=== PATIENT | female | born 1990 | race Caucasian/White ===

== ENCOUNTER 2020-02-20 05:53 | Inpatient (IN) | payer OTHER, SELFPAY ==
[2020-02-20] VITALS (70 sets, daily range): BP systolic 101–156; BP diastolic 57–109; PULSE 62–123; RESP 18; TEMP 36.3–37.2; O2SAT 98–100; BMI 28.3
[2020-02-20 06:34] LABS: Basophils Percent Auto 0.3 % (0.2-1.2); Eosinophils Percent Auto 0.2 % (0-4.4); Hematocrit 35.6 % (37.0-47.0); Immature Granulocyte Absolute 0.03 K/mm3 (0.00-0.031); Immature Granulocyte Percent A 0.3 % (0-0.5); Lymphocytes Absolute Auto 2.48 K/mm3 (0.9-3.2); Lymphocytes Percent Auto 25.9 % (18.3-44.2); Mean Corpuscular HGB Conc 33.7 g/dl (32-36); Mean Corpuscular Hemoglobin 28.5 pg (26-34); Mean Corpuscular Volume 84.6 fl (80-100); Mean Platelet Volume 11.1 fl (7.4-10.4); Monocytes Absolute Auto 0.6 K/mm3 (0.1-0.6); Monocytes Percent Auto 5.8 % (2.6-8.5); Neutrophils Absolute Auto 6.5 K/mm3 (1.3-6.7); Neutrophils Percent Auto 67.5 % (45.5-73.1); Platelet Count Result 296 k/mm3 (150-375); Red Blood Count 4.21 M/mm3 (4.2-5.4); Red Cell Distribution Width 13.3 % (11.5-14.5); White Blood Count 9.6 K/mm3 (4.5-10.0)
[2020-02-20] MEDS: OXYTOCIN 30 UNITS/NS 500 ML 30 UNITS/500 ML BAG 6 UNITS IV CONT ×2 (06:35→17:14)
[2020-02-20] MEDS: LACTATED RINGERS 1,000 ML 125 ML IV CONT ×2 (06:37→08:54)
--- NOTE | 2020-02-20 07:08 | LDADM ---
This patient, Jackie Mays, was admitted to Labor/Delivery/Recovery 106 on 02/20/20 at 05:53. Plans for labor, pain management and were discussed with patient. Patient/family oriented to hospital policies and general routines including ID bracelet, bed and alarms, visiting hours, pain management, procedures, bathroom and other care routines, personal items, smoking policy, room service/diet and guest tray routines, security routines, and visiting hours. Patient/Family are encouraged to report perceived risks to care and to ask questions if they do not understand what they are told or what they should do. See OBIX for further documentation.
[2020-02-20 07:40] LABS: Rapid Plasma Reagin Non-Reactive (NonReactive)
--- NOTE | 2020-02-20 17:20 | P.PCNOB_ITS ---
OB - Delivery Note Procedure Route of delivery: Laceration description: Perineal - 2nd Degree Delivery repair: chromic Specimen: No Estimated blood loss (mL): 500 Anesthesia type: Epidural Disposition: floor Narrative: Patient prepped draped usual for procedure. Maternal expulsive efforts delivered vertex was suction the nasal and. Rest of baby was delivered without difficulty cord was clamped and cut. Second-degree laceration was noted and approximated using 2 0 chromic in the vaginal area deep tissue was approximated as well. Subcuticular layer of 2 0 chromic to approximate the perineum. Placenta then delivered without difficulty uterus was well contracted there was no significant bleeding. This point procedure was considered terminated with good post operative condition of both mother and baby [place] Baby Weeks of gestation at delivery: 39 Infant gender: Female Weight (pounds): 8 Weight (ounces): 8 presentation: vertex Placenta delivery description: Spontaneous score one minute: 9 score five minutes: 9
--- NOTE | 2020-02-20 17:20 | WPDHPUPDATE1 ---
History and Physical Update Update Date/Time: 02/20/20 17:20 History and Physical has been reviewed, including an updated exam of the patient. There are NO changes in the patient's condition. Risks, benefits, and alternatives have been discussed and questions answered. Patient agrees to proceed with procedure.
--- NOTE | 2020-02-20 17:20 | WPDOBADMIT ---
Obstetrics - Admit Note Admission Note: record reviewed. No pertinent additions to the history and/or any subsequent changes in the physical findings that are not consistent with the expected course of the were found. Additions to the history and/or subsequent changes in the physical findings follow. None.
--- NOTE | 2020-02-20 20:13 | PC.NURSE ---
Addendum entered by Xi Bridges RN 02/21/20 01:19: Patient transferred to post room #283 via wheelchair. Support person, Suraj present. Oriented to unit, room, information board, rooming in, admission packet and security measures. Patient verbalizes understanding. Original Note: Patient transferred to post room # via ( ). Support person present. Oriented to unit, room, information board, rooming in, admission packet and security measures. Patient verbalizes understanding.
[2020-02-20] MEDS: WITCH HAZEL 40 PADS 1 PAD TOPICAL (20:15)
[2020-02-20] MEDS: BENZOCAINE 20% AER SPR (*SP) 56 GM CAN 1 SPRAY TOPICAL (20:15)
[2020-02-20] MEDS: IBUPROFEN 600 MG TABLET PO (22:48)
[2020-02-21] MEDS: IBUPROFEN 600 MG TABLET PO ×3 (04:54→19:34)
[2020-02-21 04:56] LABS: Hematocrit 30.5 % (37.0-47.0)
[2020-02-21] MEDS: MULTIVIT/MIN/PREN/FOL AC/IRON TABLET 1 TAB PO (07:04)
[2020-02-21] MEDS: ACETAMINOPHEN 325 MG TABLET 650 MG PO ×2 (07:04→12:21)
[2020-02-21 07:30] VITALS: BP 107/67; PULSE 80; RESP 18; TEMP 36.8; O2SAT 100
--- NOTE | 2020-02-21 10:59 | PM.OBDSVD ---
OB - DS: Summary OB Procedures : None OB Procedures Intrapartum: Spontaneous Vag Delivery OB Procedures: : None Time Spent with Patient Time attestation: Total time spent providing and/or coordinating discharge services: DS: Data Data Completed and Pending Labs on day of discharge: Labs from last 24 hours 02/21/20 04:39 Hgb 10.0 L Hct 30.5 L Discharge Plan Discharge Discharging Clinician: Trevor Barajas Patient Disposition: Home, Self-Care Activity: as tolerated Diet: as tolerated Patient Instructions: Antibiotic Form Stand Alone Forms: General Discharge Information Follow-up/Referrals: Trevor Barajas MD [Physician] - 3 Weeks Discharge Medications: New hydrocodone-acetaminophen 5-325 mg Tablet 1 tab PO Q3H PRN (Reason: Moderate Pain (4-6)) Qty: 30 RF: 0 ibuprofen 600 mg Tablet 600 mg PO Q6H PRN (Reason: Cramping) Qty: 30 RF: 0 Continued 28-800 mg-mcg Tablet 1 tablet PO AC RF: 0 albuterol sulfate 90 mcg/actuation Hfa Aerosol Inhaler 1 inh INHALATION QID PRN (Reason: Shortness Of Breath) RF: 0 Date of admission: 02/20/20 05:53 Primary Care Provider: UNKNOWN,DOCTOR Admitting Provider: Trevor Barajas Attending physician on admission: Trevor Barajas
--- NOTE | 2020-02-21 11:12 | WPDANLDPN2 ---
Anes-Prog Note L&D Date/Time: 02/21/20 11:12 Comfortable throughout: labor and delivery Neuraxial method: epidural Epidural/Spinal procedure site: clean & non-tender Neuro status: Neuro function grossly intact. Cardiovascular status: normal Respiratory status: normal Airway patency: baseline Mental status: baseline Post-Op hydration status: normal Vital Signs: Last Vital Signs Temp 36.8 C 02/21/20 07:30 Pulse 80 02/21/20 07:30 Resp 18 02/21/20 07:30 BP 107/67 02/21/20 07:30 Pulse Ox 100 02/21/20 07:30 I/O: Intake & Output 02/20/20 02/21/20 02/21/20 23:59 07:59 15:59 Intake Total 500 Balance 500 Patient feedback: Patient satisfied with anesthetic care.
[2020-02-21] MEDS: TETANUS,DIPHTHERIA,AC PERTUSSIS ADULT (0.5 ML) BOOSTRIX IM (15:13)
[2020-02-21 19:00] VITALS: BP 136/86; PULSE 97; RESP 16; TEMP 36.7
[2020-02-22] MEDS: IBUPROFEN 600 MG TABLET PO ×2 (05:50→13:09)
[2020-02-22] MEDS: DOCUSATE SODIUM 100 MG CAPSULE PO (07:34)
[2020-02-22] MEDS: MULTIVIT/MIN/PREN/FOL AC/IRON TABLET 1 TAB PO (07:34)
[2020-02-22 09:37] VITALS: BP 99/61; PULSE 86; RESP 14; TEMP 36.7; O2SAT 99
[2020-02-22] MEDS: WITCH HAZEL 40 PADS 1 PAD TOPICAL (13:08)
[2020-02-22] MEDS: BENZOCAINE 20% AER SPR (*SP) 56 GM CAN 1 SPRAY TOPICAL (13:08)
[2020-02-22] MEDS: LANOLIN (LANSINOH) 7.5 GM CREAM 1 APPLIC TOPICAL (13:08)
[2020-02-23 09:47] VITALS: BP 113/73; PULSE 90; RESP 16; TEMP 36.8
--- NOTE | 2020-02-29 15:33 | PM.OBDSVD ---
DS: Diagnosis Admitting Diagnosis Admitting Diagnosis: Encounter for supervision of normal , unspecified, third trimester OB - DS: Summary OB Procedures : None OB Procedures Intrapartum: Spontaneous Vag Delivery OB Procedures: : None Time Spent with Patient Time attestation: Total time spent providing and/or coordinating discharge services: Discharge Plan Discharge Discharging Clinician: Trevor Barajas Patient Disposition: Home, Self-Care Activity: as tolerated Diet: as tolerated Discharge Instructions: Education: Mom and Baby Guide Given to: Mother Follow-Up: Call your delivering provider's office for an appointment to be seen in: 3 weeks Mom and baby should come to the [facility] for the follow-up appointment. Appointment Date/Time: February 23, 2020 at 9:00 am What to expect at your follow-up visit: Blood Pressure Check Physical Assessment Call [phone] if you are unable to keep your appointment time. BREAST CARE: 1. Wear a snug supportive bra. 2. For engorgement discomfort: Breast Feeding: A. Apply warm moist washcloths B. Express milk as needed to relieve engorgement C. Wear loose clothing 3. For sore nipples A. Identify correct latch-on B. Apply warm moist washcloths before and after nursing C. Air dry nipples after nursing D. May apply Lansinoh cream to nipples PERINEAL CARE: 1. Until bleeding stops, use your olayinka bottle after urinating 2. Change your pad frequently throughout the day 3. You may take sitz baths several times a day (fill your bathtub with warm water and soak for 20 minutes.) Do NOT bathe in the water 4. No tub baths until seen by your physician - You may shower ACTIVITY: 1. Rest as much as possible. 2. Do not exercise or lift anything heavier than your baby (such as laundry or other children.) 3. Avoid stairs or driving as much as possible. 4. Do not put anything into the vagina. No douching, tampons, or sexual activity until seen by physician. NOTIFY PHYSICIAN IF YOU HAVE ANY QUESTIONS OR IF ANY OF THE FOLLOWING SYMPTOMS OCCUR: 1. If your perineum becomes red, swollen, or more painful than what you have experienced in the hospital. 2. If your vaginal bleeding becomes foul smelling. 3. If your vaginal bleeding becomes more heavy than a period or if your bleeding changes from pink to bright red. However, you may pass an occasional walnut-sized clot once or twice for the first week . 4. If you experience a sharp, shooting pain in your calves. 5. If you discover a hard, reddened area on your breast or if you experience flu-like symptoms. DIET: 1. Eat regular, well-balanced meals. 2. Drink plenty of fluids daily. If , drink to thirst. Patient Instructions: and Nipple Soreness (DC), How to Increase Your Milk Supply (DC), How to Tell if Your Baby is Getting Enough Breast Milk (DC) Stand Alone Forms: General Discharge Information Follow-up/Referrals: Trevor Barajas MD [Physician] - 3 Weeks Discharge Medications: New hydrocodone-acetaminophen 5-325 mg Tablet 1 tab PO Q3H PRN (Reason: Moderate Pain (4-6)) Qty: 30 RF: 0 ibuprofen 600 mg Tablet 600 mg PO Q6H PRN (Reason: Cramping) Qty: 30 RF: 0 Continued 28-800 mg-mcg Tablet 1 tablet PO AC RF: 0 albuterol sulfate 90 mcg/actuation Hfa Aerosol Inhaler 1 inh INHALATION QID PRN (Reason: Shortness Of Breath) RF: 0 Date of admission: 02/20/20 05:53 Primary Care Provider: UNKNOWN,DOCTOR Admitting Provider: Trevor Barajas Discharge Date/Time: 02/22/20 14:00 Attending physician on admission: Trevor Barajas
== END 2020-02-22 14:00 | disposition home or self-care (01) | DRG 807 ==
LOC: ANHLDR 05:57 → ANHOB2 22:43
PROVIDERS: Admitting Provider Obstetrics & Gynecology; Visit Provider Obstetrics & Gynecology
DX: O69.81X0 Labor and delivery complicated by cord around neck, without compression, not applicable or unspecified (principal); Z37.0 Single live birth; Z3A.39 39 weeks gestation of pregnancy; Z23 Encounter for immunization; O70.1 Second degree perineal laceration during delivery
CPT/HCPCS: 36415; 85014; 85018; 85025; 86592; 86850; 86900; 86901; 90715; A9270; J2590; J2795; J3010; J7120

== ENCOUNTER 2020-02-28 14:29 | Outpatient (RCR) | payer OTHER, SELFPAY ==
--- NOTE | 2020-03-01 12:53 | PC.NURSE ---
Pt seen on 02-28-2020 IN 1100 OUT 1150 HISTORY: Pt. delivered at [facility] at 39 weeks. Infant had no complications after delivery. Mother had no complications after delivery. is now 8 days old. appears to be well cared for. Infant has been seen by ICP as scheduled. last seen by ICP on 02/24/2020. Mother reports: began using nipple shield within the first few feedings due to unable to latch and draw nipple in deeply. Infant was supplemented after most feedings. At follow up visit had weight loss, mother began pumping and bottle feeding. Infant was seen by ICP and had a weight gain. Mother is pumping 30-60mls every 3 hours, is taking 60 mls EBM/formula by bottle each feeding. Mother wishes: To have infant breatfeed with or without shield and increase milk supply. Currently at 6 wets per day and 4 yellow seedy stools per day. weight: 8#8 Discharge weight: Last Weight: 7#15 OBSERVATION: Mother puts infant to breast using cradle positioning, allowing infant to latch shallow to nipple. makes eager attempts and is unable to draw nipple in. Suggested to use shield. Nipple shield provided to mother due to in ineffective latch. Discussed nipple shield precautions and possible complications. Instructions given on application and cleaning of shield. Patient able to return demonstration on proper application of shield. Discussed the need to continue regular pumping continues to nurse with the shield, until milk supply is established and infant is able to gain appropriate weight without supplementation. Patient verbalizes understanding. With shield in place. Reviewed positioning/alignment in cross cradle, holding breast in U hold and guided asymmetrical latch on. Discussed the rational for each. given a few sucks to bottle then transitioned to breast. Infant was able to latch correctly. nursed eagerly, with steady draws and frequent swallowing noted. Reviewed signs of a correct latch, effective nursing and suck swallow ratio. was able to maintain latch without discomfort to mother. Nipple care reviewed. Demonstrated breast compressions to assist with milk flow and how to adjust latch more deeply while feeding. Mother was able to demonstrated both. nursed on both breasts, mother was able to switch infant to other breast independently. PLAN: Mother will follow above feeding plan using techniques for deeper latch and work to keep awake and nursing effectively. Mother will continue to offer supplementation after each feeding and work with increasing milk supply. Discussed when/how to recognize is ready to begin weaning from supplementation. Mother will call with further questions or concerns. Follow up phone call scheduled for Thursday03-01-2020
--- NOTE | 2020-04-09 11:48 | PC.NURSE ---
PT SEEN ON IN 1100 OUT 1140 HISTORY: 2nd visit PP. Mother reports: Mother continues with pain at times. Infant has seen ICP and has good weight gain, output and eagerly waking to feed. Mother has resolved most engorgement, she is now self expressing before feedings with no pumping. Mother states some latches are deep and not discomfort and others have discomfort during most of the feeding. Last Weight: 8#10 at ICP Mother wishes: Resolve pain with feedings. Currently at 8 wets per day and 4+ yellow seedy stools per day. OBSERVATION: Mother slightly firm to areola, suggested self expression before latch to soften areola. Mother easily expresses to soften. Mother hold breast in U hold using cross cradle for latching. Mother points nipple downwards for latch and rolls bottom lip in. Reviewed titling head back and dropping bottom of areola in and rolling head around for deep latch using asymmetrical latching. Mother reports she has some difficulties with this if is moving around during latch. Demonstrated how to adjust more deeply while nursing and to roll bottom lip if unable to latch correctly from first attempt. Discussed holding breast during entire feeding to assist with maintaining deep latch, and gives mother more control over infant pulling and moving about during feeding. Suggested use/need of a nipple shield, larger flanges, supplementation nursing system, double electric hospital grade pump to assist with ?. Offered supply thru [employer], advised supply is available at other retail locations. Pt. chose to use [facility]. PLAN: Mother will follow above feeding plan using techniques for deeper latch. Mother will call with further questions or concerns.
== END 2020-04-27 08:58 | disposition home or self-care (01) ==
LOC: ANHOBOP 14:29
PROVIDERS: Visit Provider Pediatrics
DX: Z39.1 Encounter for care and examination of lactating mother (principal)
CPT/HCPCS: 99212; G0463

== ENCOUNTER 2022-04-11 11:36 | Outpatient (CLI) | payer OTHER, SELFPAY ==
[2022-04-11 12:03] LABS: Basophils Percent Auto 0.5 % (0.2-1.2); Eosinophils Absolute Auto 0.1 K/mm3 (0-0.3); Eosinophils Percent Auto 0.6 % (0-4.4); Hematocrit 38.2 % (37.0-47.0); Hemoglobin 13.3 g/dL (12.0-15.0); Immature Granulocyte Absolute 0.03 K/mm3 (0.00-0.031); Immature Granulocyte Percent A 0.4 % (0-0.5); Lymphocytes Absolute Auto 1.88 K/mm3 (0.9-3.2); Lymphocytes Percent Auto 22.1 % (18.3-44.2); Mean Corpuscular HGB Conc 34.8 g/dl (32-36); Mean Corpuscular Hemoglobin 30.4 pg (26-34); Mean Corpuscular Volume 87.4 fl (80-100); Monocytes Absolute Auto 0.3 K/mm3 (0.1-0.6); Monocytes Percent Auto 3.9 % (2.6-8.5); Neutrophils Absolute Auto 6.2 K/mm3 (1.3-6.7); Neutrophils Percent Auto 72.5 % (45.5-73.1); Platelet Count Result 295 k/mm3 (150-375); Red Blood Count 4.37 M/mm3 (4.2-5.4); White Blood Count 8.5 K/mm3 (4.5-10.0)
[2022-04-11 12:56] LABS: HIV 1/2 Ab P24 Ag Result Negative (Negative)
[2022-04-11 13:13] LABS: Hepatitis B Surface Antigen Negative (Negative)
[2022-04-14 09:11] LABS: Rapid Plasma Reagin Non-Reactive (NonReactive)
[2022-04-15 14:36] LABS: CMV IgG Antibody <0.60 U/mL (<0.60)
== END 2022-04-11 11:37 | disposition home or self-care (01) ==
LOC: ANHLAB 11:38
PROVIDERS: PCP Physician Assistant; Visit Provider Obstetrics & Gynecology
DX: N94.89 Other specified conditions associated with female genital organs and menstrual cycle (principal)
CPT/HCPCS: 36415; 84702; 85025; 86592; 86644; 86703; 86747; 86762; 86787; 86900; 86901; 87086; 87088; 87340; G0432

== ENCOUNTER 2022-08-18 09:29 | Outpatient (CLI) | payer OTHER, SELFPAY ==
[2022-08-18 11:11] LABS: Basophils Percent Auto 0.3 % (0.2-1.2); Eosinophils Absolute Auto 0.1 K/mm3 (0-0.3); Eosinophils Percent Auto 0.5 % (0-4.4); Hematocrit 34.7 % (37.0-47.0); Hemoglobin 11.7 g/dL (12.0-15.0); Immature Granulocyte Absolute 0.05 K/mm3 (0.00-0.031); Immature Granulocyte Percent A 0.5 % (0-0.5); Lymphocytes Absolute Auto 1.92 K/mm3 (0.9-3.2); Lymphocytes Percent Auto 19.5 % (18.3-44.2); Mean Corpuscular HGB Conc 33.7 g/dl (32-36); Mean Corpuscular Hemoglobin 30.5 pg (26-34); Mean Corpuscular Volume 90.6 fl (80-100); Mean Platelet Volume 9.7 fl (7.4-10.4); Monocytes Absolute Auto 0.4 K/mm3 (0.1-0.6); Monocytes Percent Auto 4.3 % (2.6-8.5); Neutrophils Absolute Auto 7.4 K/mm3 (1.3-6.7); Neutrophils Percent Auto 74.9 % (45.5-73.1); Platelet Count Result 272 k/mm3 (150-375); Red Blood Count 3.83 M/mm3 (4.2-5.4); Red Cell Distribution Width 12.6 % (11.5-14.5); White Blood Count 9.8 K/mm3 (4.5-10.0)
[2022-08-18 11:21] LABS: Glucose 1 Hour PP 50gm Dose 140 mg/dL
[2022-08-18 12:13] LABS: HIV 1/2 Ab P24 Ag Result Negative (Negative)
== END 2022-08-18 09:30 | disposition home or self-care (01) ==
PROVIDERS: PCP Physician Assistant; Visit Provider Obstetrics & Gynecology
DX: Z34.90 Encounter for supervision of normal pregnancy, unspecified, unspecified trimester (principal)
CPT/HCPCS: 36415; 82947; 85025; 86703; G0432

== ENCOUNTER 2022-08-25 06:55 | Outpatient (CLI) | payer OTHER, SELFPAY ==
[2022-08-25 07:39] LABS: Glucose Fasting Gestational 91 mg/dL (>/=95)
== END 2022-08-25 06:56 | disposition home or self-care (01) ==
LOC: ANHLAB 06:56
PROVIDERS: PCP Physician Assistant; Visit Provider Obstetrics & Gynecology
DX: R73.09 Other abnormal glucose (principal)
CPT/HCPCS: 36415; 82951; 82952

== ENCOUNTER 2022-09-01 06:45 | Outpatient (CLI) | payer OTHER, SELFPAY ==
[2022-09-01 07:37] LABS: Glucose Fasting Gestational 96 mg/dL (>/=95)
[2022-09-01 09:09] LABS: Glucose 1 Hour Gest 181 mg/dL (>/=180)
[2022-09-01 10:06] LABS: Glucose 2 Hour Gest 139 mg/dL (>/= 155)
[2022-09-01 11:05] LABS: Glucose 3 Hour Gest 127 mg/dL (>/=140)
== END 2022-09-01 06:46 | disposition home or self-care (01) ==
LOC: ANHLAB 06:47
PROVIDERS: PCP Physician Assistant; Visit Provider Obstetrics & Gynecology
DX: R73.09 Other abnormal glucose (principal)
CPT/HCPCS: 36415; 82951; 82952

== ENCOUNTER 2022-10-19 08:20 | Emergency (ER) | payer OTHER, SELFPAY ==
--- NOTE | 2022-10-19 08:25 | ED.URI ---
HPI - URI/Sore Throat General Chief Complaint: Upper Respiratory Infection Stated Complaint: NASAL PAIN/COUGH/SORE THROAT Time Seen by Provider: 10/19/22 08:26 Source: patient Mode of arrival: ambulatory Limitations: no limitations History of Present Illness HPI Narrative: Jackie is a 32-year-old female patient presenting to clinic today with complaints of nasal congestion, cough, and sore throat/postnasal drip x1 day. She reports her symptoms began yesterday. She is having a lot of nasal congestion and cough with drainage going down the back of her throat. She is 39 weeks and is due to deliver at any time MD elicited complaint: sore throat and nasal congestion Related Data Home Medications Medication Instructions Recorded Confirmed vitamins-iron fumarate 65 1 tablet PO DAILY 03/24/22 10/19/22 mg iron-folic acid 1 mg tablet ferrous sulfate 325 mg (65 mg 325 mg PO DAILY 09/03/22 10/19/22 iron) tablet Allergies Allergy/AdvReac Type Severity Reaction Status Date / Time No Known Allergies Allergy Verified 10/19/22 08:24 Review of Systems Review of Systems: Pertinent positives per HPI. Patient denies any fever, chills, rash, headache, visual changes, dizziness, shortness of breath, chest pain, palpitations, nausea, vomiting, diarrhea, constipation, abdominal pain, or any urinary issues. [facility] Past Medical History Medical History Abnormal glucose Anxiety Asthma Breast abscess 03/27/20 rt breast I&D Depression Encounter for insertion of mirena IUD 03/20/2020 insertion Encounter for IUD removal Suppression of menstruation Urinary tract infection Surgical History Surgical History History of gynecological procedure (03/20/20) mirena iud insertion History of incision and drainage (03/27/20) right breast abscess Family History Family History Mother Diabetes mellitus Psoriatic arthritis Hypertension Grandparent Breast cancer paternal grandmother Other Breast cancer maternal aunt Other Patient's mother is Social History Social History Smoking status: Never smoker Alcohol intake: current Alcohol use details: weekends Substance use: former Substance use type: does not use Additional living arrangements comments: spouse 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 There is no relevant family history pertinent to the patient complaint. Exam Narrative: General: Well-developed, well nourished, in no apparent distress Head: Normocephalic, atraumatic Eyes: Pupils equally round and reactive to light bilaterally, EOM intact, sclera and conjunctive clear, no discharge, lids normal Ears: TMs intact and clear, ear canals clear, no drainage, grossly hearing normal. Nose: Nares patent, clear nasal discharge, mild inflammation, no sinus tenderness. Mouth: Oral pharynx without lesions or masses, good dentition, MMM. Postnasal drip Neck: Supple, trachea midline, no enlargement of anterior or posterior cervical nodes, no thyroid masses or goiter palpable. Cardio: Regular rate and rhythm, s1 and s2 normal, no murmur appreciated. Resp: Clear to auscultation bilaterally, no rhonchi, rales, wheezing or rubs Course Course Emergency Course: Portions of this record may have been created with voice recognition software. Level of Care: Express Care Visit Vital Signs Vital signs: Vital Signs Temperature
[2022-10-19 08:26] VITALS: BP 137/93; PULSE 108; RESP 16; TEMP 36.3; O2SAT 100
== END 2022-10-19 09:00 | disposition home or self-care (01) ==
PROVIDERS: Emergency Provider Nurse Practitioner Family; PCP Obstetrics & Gynecology
DX: O99.513 Diseases of the respiratory system complicating pregnancy, third trimester (principal); Z3A.39 39 weeks gestation of pregnancy; J06.9 Acute upper respiratory infection, unspecified; Z20.822 Contact with and (suspected) exposure to COVID-19; J45.909 Unspecified asthma, uncomplicated
CPT/HCPCS: 87081; 87426; 99213; C9803; G0463

== ENCOUNTER 2022-10-23 06:23 | Inpatient (IN) | payer OTHER, SELFPAY ==
[2022-10-23] VITALS (93 sets, daily range): BP systolic 94–165; BP diastolic 61–144; PULSE 66–132; RESP 16–18; TEMP 36.6–37; O2SAT 98–100; BMI 31.6
[2022-10-23 07:11] LABS: Basophils Percent Auto 0.2 % (0.2-1.2); Eosinophils Absolute Auto 0.1 K/mm3 (0-0.3); Eosinophils Percent Auto 0.6 % (0-4.4); Hematocrit 34.3 % (37.0-47.0); Hemoglobin 11.8 g/dL (12.0-15.0); Immature Granulocyte Absolute 0.03 K/mm3 (0.00-0.031); Immature Granulocyte Percent A 0.3 % (0-0.5); Lymphocytes Absolute Auto 2.01 K/mm3 (0.9-3.2); Lymphocytes Percent Auto 22.4 % (18.3-44.2); Mean Corpuscular HGB Conc 34.4 g/dl (32-36); Mean Corpuscular Hemoglobin 29.6 pg (26-34); Mean Platelet Volume 10.5 fl (7.4-10.4); Monocytes Absolute Auto 0.5 K/mm3 (0.1-0.6); Monocytes Percent Auto 5.4 % (2.6-8.5); Neutrophils Absolute Auto 6.4 K/mm3 (1.3-6.7); Neutrophils Percent Auto 71.1 % (45.5-73.1); Platelet Count Result 238 k/mm3 (150-375); Red Blood Count 3.99 M/mm3 (4.2-5.4); Red Cell Distribution Width 12.9 % (11.5-14.5)
[2022-10-23] MEDS: LACTATED RINGERS 1,000 ML 125 ML IV CONT (07:14)
[2022-10-23] MEDS: OXYTOCIN 30 UNITS/NS 500 ML 30 UNITS/500 ML BAG IV CONT (07:14)
--- NOTE | 2022-10-23 10:00 | WPDHPUPDATE1 ---
History and Physical Update Update Date/Time: 10/23/22 10:00 History and Physical has been reviewed, including an updated exam of the patient. There are NO changes in the patient's condition. Risks, benefits, and alternatives have been discussed and questions answered. Patient agrees to proceed with procedure.
--- NOTE | 2022-10-23 12:23 | PM.OBPRVD ---
OB - Delivery Note Procedure Induction method: AROM and Per Pitocin Protocol Delivery monitor: External FHT and External Uterine Route of delivery: Episiotomy description: None Laceration Description: Perineal - 2nd Degree Delivery repair: chromic Specimen: No Quantitative Blood Loss (ml): 200 Anesthesia type: Epidural Disposition: Floor Complications: none Narrative: Patient prepped and draped usual manner for this procedure. Maternal expulsive efforts readily delivered vertex over intact perineum. Rest baby delivered without difficulty cord clamped and cut and placenta delivered spontaneously. Cervix vagina vulva were inspected with second-degree midline laceration noted. This was approximated using 2-0 chromic in a running interlocking manner to approximate the vaginal tissue deep tissue was then approximated using 0 chromic and a subcuticular to approximate the perineum. again uterus was well contracted with minimal bleeding and at this point the procedure was considered terminated. Baby Weeks of gestation at delivery: 39 Infant gender: Female Weight (pounds): 8 Weight (ounces): 7 presentation: vertex Placenta delivery description: Spontaneous Cord Vessel Description: 3 Vessels score one minute: 8 score five minutes: 9 AMG Delivery Billing Delivery Delivery: Delivery Charge
[2022-10-23] MEDS: OXYTOCIN 30 UNITS/NS 500 ML 30 UNITS/500 ML BAG 125 UNITS IV CONT (12:27)
[2022-10-23] MEDS: BENZOCAINE 20% AER SPR (*SP) 56 GM CAN 1 SPRAY TOPICAL (14:02)
[2022-10-23] MEDS: WITCH HAZEL 40 PADS 1 PAD TOPICAL (14:02)
[2022-10-23] MEDS: IBUPROFEN 600 MG TABLET PO ×2 (14:03→23:04)
--- NOTE | 2022-10-23 14:42 | OBPPTRN ---
Patient transferred to post room #286 via wheelchair. Support person present. Oriented to unit, room, information board, rooming in, admission packet and security measures. Patient verbalizes understanding.
[2022-10-23] MEDS: DOCUSATE SODIUM 100 MG CAPSULE PO (16:24)
[2022-10-24 04:40] VITALS: BP 125/88; PULSE 86; RESP 16; TEMP 36.5
[2022-10-24] MEDS: ACETAMINOPHEN 325 MG TABLET 650 MG PO (04:40)
[2022-10-24 05:31] LABS: Hematocrit 30.9 % (37.0-47.0); Hemoglobin 10.2 g/dL (12.0-15.0)
--- NOTE | 2022-10-24 07:28 | WPDANLDPN2 ---
Anes-Prog Note L&D Date/Time: 10/24/22 07:28 Neuro status: Neuro function grossly intact. Vital Signs: Last Vital Signs Temp 36.5 C 10/24/22 04:40 Pulse 86 10/24/22 04:40 Resp 16 10/24/22 04:40 BP 125/88 10/24/22 04:40 Pulse Ox 99 10/23/22 14:45 O2 Del Method Room Air 10/23/22 19:25 Pain score (VAS): 0 I/O: Intake & Output 10/23/22 10/23/22 10/24/22 15:59 23:59 07:59 Intake Total 1500 900 Output Total 332 Balance 1168 900 Patient feedback: Patient satisfied with anesthetic care.
[2022-10-24 08:25] VITALS: BP 96/70; PULSE 97; RESP 18; TEMP 37; O2SAT 100
--- NOTE | 2022-10-24 08:27 | PM.OBDSVD ---
DS: Admitting Diagnosis Discharge Date 10/24/2022 Admitting Diagnosis OB - DS: Summary OB Procedures : None OB Procedures Intrapartum: Spontaneous Vag Delivery OB Procedures: : None Time Spent with Patient Time attestation: Total time spent providing and/or coordinating discharge services: DS: Data Data Completed and Pending Labs on day of discharge: Labs from last 24 hours 10/24/22 10/23/22 04:47 06:43 Hgb 10.2 L Hct 30.9 L Blood Type O Positive Antibody Screen Negative Discharge Plan Discharge Discharging Clinician: Trevor Barajas Patient Disposition: Home, Self-Care Activity: as tolerated Diet: as tolerated Patient Instructions: Antibiotic Form Stand Alone Forms: General Discharge Information Follow-up/Referrals: Trevor Barajas MD [Physician] - 3 Weeks Discharge Medications: New ibuprofen 600 mg Tablet 600 mg PO Q6H PRN (Reason: Cramping) Qty: 30 0RF Continued vit-iron fum-folic ac 65 mg iron- 1 mg tablet 1 tablet PO DAILY ferrous sulfate 325 mg (65 mg iron) tablet 325 mg PO DAILY Date of admission: 10/23/22 06:23 Primary Care Provider: UNKNOWN,DOCTOR Admitting Provider: Trevor Barajas Attending physician on admission: Trevor Barajas Condition: Stable
[2022-10-24 08:30] VITALS: PULSE 103; RESP 16; O2SAT 100
[2022-10-24] MEDS: DOCUSATE SODIUM 100 MG CAPSULE PO (08:30)
[2022-10-24] MEDS: MULTIVIT/MIN/PREN/FOL AC/IRON TABLET 1 TAB PO (08:30)
[2022-10-24] MEDS: IBUPROFEN 600 MG TABLET PO (08:30)
[2022-10-24 11:49] VITALS: BP 95/53; PULSE 103; RESP 16; TEMP 37.1; O2SAT 100
[2022-10-24 14:45] LABS: Rapid Plasma Reagin Non-Reactive (NonReactive)
[2022-10-27 10:55] VITALS: BP 125/85; PULSE 89; RESP 20; TEMP 37.2; O2SAT 100
== END 2022-10-24 14:57 | disposition home or self-care (01) | DRG 807 ==
LOC: ANHLDR 06:25 → ANHOB2 14:57
PROVIDERS: Admitting Provider Obstetrics & Gynecology; Visit Provider Obstetrics & Gynecology
DX: O70.1 Second degree perineal laceration during delivery (principal); Z37.0 Single live birth; Z3A.39 39 weeks gestation of pregnancy
CPT/HCPCS: 36415; 85014; 85018; 85025; 86592; 86850; 86900; 86901; A9270; J2590; J2795; J7120

== ENCOUNTER 2022-10-26 01:46 | Emergency (ER) | payer OTHER, SELFPAY ==
[2022-10-26 01:59] VITALS: BP 156/95; PULSE 102; RESP 16; TEMP 36.9; O2SAT 98
[2022-10-26 02:16] LABS: Basophils Percent Auto 0.4 % (0.2-1.2); Eosinophils Absolute Auto 0.1 K/mm3 (0-0.3); Eosinophils Percent Auto 1.2 % (0-4.4); Hematocrit 31.2 % (37.0-47.0); Hemoglobin 10.2 g/dL (12.0-15.0); Immature Granulocyte Absolute 0.05 K/mm3 (0.00-0.031); Immature Granulocyte Percent A 0.6 % (0-0.5); Lymphocytes Absolute Auto 2.82 K/mm3 (0.9-3.2); Lymphocytes Percent Auto 31.1 % (18.3-44.2); Mean Corpuscular HGB Conc 32.7 g/dl (32-36); Mean Corpuscular Hemoglobin 29.7 pg (26-34); Mean Corpuscular Volume 90.7 fl (80-100); Mean Platelet Volume 10.4 fl (7.4-10.4); Monocytes Absolute Auto 0.5 K/mm3 (0.1-0.6); Monocytes Percent Auto 5.8 % (2.6-8.5); Neutrophils Absolute Auto 5.5 K/mm3 (1.3-6.7); Neutrophils Percent Auto 60.9 % (45.5-73.1); Platelet Count Result 252 k/mm3 (150-375); Red Blood Count 3.44 M/mm3 (4.2-5.4); Red Cell Distribution Width 13.2 % (11.5-14.5); White Blood Count 9.1 K/mm3 (4.5-10.0)
[2022-10-26 02:18] LABS: Add Urine Microscopic? YES; Appearance Urine Slightly Cloudy (Clear); Bilirubin Urine Negative (Negative); Blood Urine 3+ (Negative); Color Urine Light Yellow (Yellow); Glucose Urine UA Negative (Negative); Ketones Urine Negative (Negative); Leukocyte Esterase Ur Trace LEU/UL (Negative); Nitrate Urine Negative (Negative); Protein Urine Negative (Negative); Specific Grav Ur 1.015 (1.001-1.035); Urobilinogen Urine 0.2 mg/dL (<2.0)
[2022-10-26 02:25] LABS: Alanine Aminotransferase 16 U/L (6-35); Albumin Level 3.4 g/dL (3.5-5.1); Alkaline Phosphatase 126 U/L (38-126); Anion Gap 6 mmol/L (8-16); Aspartate Amino Transferase 23 U/L (14-36); Bilirubin,Total 0.2 mg/dL (0.2-1.3); Blood Urea Nitrogen 11 mg/dL (7-17); Calcium 8.4 mg/dL (8.4-10.2); Carbon Dioxide 26 mmol/L (22-30); Chloride 106 mmol/L (98-107); Estimated CRCL calculation 96 ml/min; Estimated Glomerular Filt Rate > 60; Glucose 100 mg/dL (65-110); Potassium 3.8 mmol/L (3.4-5.0); Sodium 138 mmol/L (137-145)
[2022-10-26 02:28] LABS: Amorphous Sediment Urine Few; Bacteria Urine Trace /hpf; Mucus Urine Rare /lpf; RBC Urine >75 /hpf (0-2); Squamous Epithelial Cell Urine Few /hpf (Few); WBC Urine 21-30 /hpf
[2022-10-26 02:32] LABS: INR 0.8; Prothrombin Time 11.2 Seconds (11.1-14.7)
[2022-10-26 02:33] LABS: Partial Thromboplastin Time 26.4 SECONDS (22.3-36.8)
--- NOTE | 2022-10-26 03:11 | PC.NURSE ---
Pt approached triage desk and states I have to go home, Im my baby's only source of food . Pt reports she has a follow-up appointment on Thursday. Pt educated on risks of leaving before seeing provider, verbalized understanding. Pt ambulated out of Ed with steady gait, in no obvious distress.
== END 2022-10-26 03:11 | disposition left against medical advice (07) ==
LOC: ANHED 03:26
PROVIDERS: Emergency Provider Emergency Medicine
DX: Z53.21 Procedure and treatment not carried out due to patient leaving prior to being seen by health care provider (principal)
CPT/HCPCS: 36415; 80053; 81001; 85025; 85610; 85730; 87086; 87088; 99199

== ENCOUNTER 2024-08-10 08:29 | Outpatient (CLI) | payer OTHER, SELFPAY ==
[2024-08-10 08:58] LABS: Hematocrit 41.6 % (37.0-47.0); Hemoglobin 13.4 g/dL (12.0-15.0); Mean Corpuscular HGB Conc 32.2 g/dl (32-36); Mean Corpuscular Hemoglobin 29.3 pg (26-34); Mean Platelet Volume 10.4 fl (7.4-10.4); Platelet Count Result 236 k/mm3 (150-375); Red Blood Count 4.57 M/mm3 (4.2-5.4); Red Cell Distribution Width 12.4 % (11.5-14.5); White Blood Count 6.7 K/mm3 (4.5-10.0)
[2024-08-10 09:16] LABS: Alanine Aminotransferase 12 U/L (6-35); Albumin Level 4.5 g/dL (3.5-5.1); Alkaline Phosphatase 50 U/L (38-126); Anion Gap 6 mmol/L (4-12); Aspartate Amino Transferase 19 U/L (14-36); Bilirubin,Total 0.5 mg/dL (0.2-1.3); Blood Urea Nitrogen 9 mg/dL (7-17); Calcium 8.8 mg/dL (8.4-10.2); Carbon Dioxide 27 mmol/L (22-30); Chloride 106 mmol/L (98-107); Cholesterol 128 mg/dL (0-200); Estimated Glomerular Filt Rate > 60; Glucose 103 mg/dL (65-110); HDL Direct 53 mg/dL; Potassium 4.3 mmol/L (3.4-5.0); Sodium 139 mmol/L (137-145); Triglycerides 35 mg/dL (<150)
[2024-08-10 09:26] LABS: LDL Cholesterol Direct 49 mg/dL
[2024-08-10 09:54] LABS: Thyroid Stimulating Hormone Reflex 0.711 uIU/mL (0.465-4.68)
== END 2024-08-10 08:30 | disposition home or self-care (01) ==
LOC: ANHLAB 08:30
PROVIDERS: PCP Family Medicine; Visit Provider Physician Assistant Medical
DX: Z00.00 Encounter for general adult medical examination without abnormal findings (principal); F41.9 Anxiety disorder, unspecified; E78.2 Mixed hyperlipidemia; R53.83 Other fatigue
CPT/HCPCS: 36415; 80053; 80061; 84443; 85027

== ENCOUNTER 2025-01-23 18:54 | Emergency (ER) | payer OTHER, SELFPAY ==
--- NOTE | 2025-01-23 18:56 | ED_ITS ---
HPI - URI/Sore Throat General Chief Complaint: Upper Respiratory Infection Stated Complaint: Flu Symptoms Time Seen by Provider: 01/23/25 19:05 Source: patient Mode of arrival: ambulatory Limitations: no limitations History of Present Illness HPI Narrative: Jackie is a 34-year-old female patient presenting to the clinic today with complaints of flu-like symptoms. She reports sore throat, runny nose, cough, congestion, feeling feverish, chills, and body aches Related Data Home Medications ?Medication ?Instructions ?Recorded ?Confirmed ?Last Taken ?Type No Home Medications 01/23/25 01/23/25 Unknown History Allergies Allergy/AdvReac Type Severity Reaction Status Date / Time No Known Allergies Allergy Verified 01/23/25 18:58 Review of Systems Review of Systems: Pertinent positives per HPI. Patient denies any rash, visual changes, dizziness, shortness of breath, chest pain, palpitations, nausea, diarrhea, constipation, abdominal pain, or any urinary issues. PMFSH Past Medical History Medical History Abnormal glucose Suppression of menstruation Encounter for IUD removal Encounter for insertion of mirena IUD 03/20/2020 insertion Breast abscess 03/27/20 rt breast I&D Urinary tract infection Depression Anxiety Asthma Surgical History Surgical History History of incision and drainage (03/27/20) right breast abscess History of gynecological procedure (03/20/20) mirena iud insertion Family History Family History Mother Diabetes mellitus Psoriatic arthritis Hypertension Grandparent Breast cancer paternal grandmother Other Breast cancer maternal aunt Other Patient's mother is Social History Social History Smoking status: Never smoker Second hand tobacco smoke exposure: No Alcohol intake: current Alcohol use details: weekends Substance use: current Substance use type: marijuana Other substance usage details: weekend Do You Feel Safe in your Home?: Yes Lack of Transportation: No Lack of Food: Never True Current Housing: I Have Housing Concerned About Future Housing: No Difficulty Paying Gas/Electric Bills: No Difficulty Paying for Meds: No Currently Unemployed: No Education: High School Diploma/GED Difficulty w/ Childcare or Family Care: No Living arrangements: with family Additional living arrangements comments: spouse Occupation/Education: occupation 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 There is no relevant family history pertinent to the patient complaint. Exam Narrative: General: Well-developed, well nourished, acute ill appearing Head: Normocephalic, atraumatic Eyes: Pupils equally round and reactive to light bilaterally, EOM intact, sclera and conjunctive clear, no discharge, lids normal Ears: TMs intact and clear, ear canals clear, no drainage, grossly hearing normal. Nose: Nares patent, clear nasal discharge, no inflammation, no sinus tenderness. Mouth: Oral pharynx red without lesions or masses, good dentition, MMM. Postnasal drip Neck: Supple, trachea midline, no enlargement of anterior or posterior cervical nodes, no thyroid masses or goiter palpable. Cardio: Regular rate and rhythm, s1 and s2 normal, no murmur appreciated. Resp: Clear to auscultation bilaterally, no rhonchi, rales, wheezing or rubs Course Course Emergency Course: Portions of this record may have been created with voice recognition software. Level of Care: Express Care Visit Vital Signs Vital signs: Vital Signs Temperature 38.1 C H 01/23/25 18:59 Pulse Rate 133 H 01/23/25 18:59 Respiratory Rate 20 01/23/25 18:59 Blood Pressure 124/84 01/23/25 18:59 Pulse Oximetry 98 01/23/25 18:59 Oxygen Delivery Room Air 01/23/25 18:59 Temperature 38.1 C H 01/23/25 18:59 Pulse Rate 133 H 01/23/25 18:59 Respiratory Rate 20 01/23/25 18:59 Blood Pressure 124/84 01/23/25 18:59 Pulse Oximetry 98 01/23/25 18:59 Oxygen Delivery Room Air 01/23/25 18:59 Vital signs reviewed MDM - URI/Sore Throat MDM Narrative Medical decision making narrative: At the time of visit patient is resting comfortably on the exam table. Patient appears to be nontoxic. Labs: COVID, influenza, and strep test were all negative in the clinic today. We will send strep for culture. Plan: I suspect patient has URI/pharyngitis/viral syndrome. Supportive measures were discussed with the patient and they voiced understanding discharge instructions and agrees to treatment plan. Return precautions reviewed. Differential Diagnosis Differential diagnosis: Likely upper respiratory infection, otitis media, sinusitis, viral infection, bronchitis, influenza, pharyngitis and other (COVID) Lab Data Labs: Lab Results 01/23/25 Range/Units 19:10 POC Grp A Strep Screen Negative (Negative) Discharge Plan Discharge Clinical Impression: Viral infection Upper respiratory infection Qualifiers: URI type: unspecified URI Qualified Code(s): J06.9 - Acute upper respiratory infection, unspecified Pharyngitis Qualifiers: Pharyngitis/tonsillitis etiology: unspecified etiology Qualified Code(s): J02.9 - Acute pharyngitis, unspecified Patient Disposition: Home, Self-Care Condition: Stable Instructions: Antibiotic Form, Pharyngitis (ED), Viral Syndrome (ED), Cold Symptoms (ED) Additional Instructions: COVID, influenza, and strep test are negative. We will send strep for culture May take DayQuil/NyQuil for cold/flu symptoms Increase fluids and stay well hydrated Tylenol/motrin for pain/fever Flonase and OTC antihistamines as directed Vicks vapor rub to open sinuses Sinus rinses for congestion Cepacol spray, cough drops, throat lozenges, warm tea with honey/lemon, gargle salt water to soothe throat BRAT diet for diarrhea Clear liquids x 24 hours then advance as tolerated for nausea/vomiting Go to the ED if you develop a worsening in your condition- high fever not controlled by Tylenol or Motrin, dehydration, weakness, lethargy, shortness of breath, or chest pain. Follow up with your PCP in 3-5 days if symptoms persist. Patient Language: Lebanese Prescriptions: No Action No Home Medications Follow-up/Referrals: PHYSICIAN,DEVOPS CONSULTANT [Primary Care Provider] - Stand Alone Forms: Work/School Release IP Time of Disposition: 19:10 Quality NIH Nursing Documentation ED NIH nursing documentation: reviewed/agree
[2025-01-23 18:59] VITALS: BP 124/84; PULSE 133; RESP 20; TEMP 38.1; O2SAT 98
[2025-01-23 19:12] LABS: EDSTREPNEGPOS1 Negative (Negative)
[2025-01-23 19:19] LABS: EDCOVIDSCREEN Negative (Negative); EDINFLUASCREEN Negative (Negative); EDINFLUBSCREEN Negative (Negative)
== END 2025-01-23 19:23 | disposition home or self-care (01) ==
PROVIDERS: Emergency Provider Nurse Practitioner Family
DX: B34.9 Viral infection, unspecified (principal); J06.9 Acute upper respiratory infection, unspecified; J02.9 Acute pharyngitis, unspecified; Z20.822 Contact with and (suspected) exposure to COVID-19; F12.90 Cannabis use, unspecified, uncomplicated; J45.909 Unspecified asthma, uncomplicated
CPT/HCPCS: 87081; 87426; 87804; 87880; 99213; G0463

== ENCOUNTER 2025-01-25 21:26 | Emergency (ER) | payer OTHER, SELFPAY ==
[2025-01-25 21:29] VITALS: BP 126/95; PULSE 91; RESP 15; TEMP 36.6; O2SAT 98
--- OUTSIDE RECORDS SUMMARY | 2025-01-25 21:29 | XMS_ITS | Clinical Summary ---
Author Organization [facility] Address [address] [place] [address] Care Team Providers Care Predictive Maintenance Specialist Name Role Phone Unavailable Primary Care Provider Unavailabl e Source Comments [facility],non-owned Affiliates and Associated Physician Practices is amultiple site organization consisting of ambulatory clinics and hospital sitesin [place], [place], [place] and [place]. This disclosure is being madepursuant to the Care Everywhere program and may not contain all information available regarding this patient. Last updated 18.[facility] [place] Allergies No known active allergies Immunizations Name Administration Dates Next Due INFLUENZA VACCINE, QUADR. (F LUZONE; FLULAVAL; FLUARIX; AFLURIA QUADRIVALENT; 6MO+), 0.5 ML (IIV4) 08/23/2019 Social History Tobacco Use Types Packs/Day Years Used Date Smoking Tobacco: Never Assessed Estimated Date of Delivery Comme nts Yes 02/27/2020 Sex and Gender Information Value Date Recorded Sex Assigned at Not on file Gender Identity Not on file Sexual Orientation Not on file Plan of Treatment Health Maintenance Due Date Last Done Comments PAP SMEAR 1988 HIV SCREENING 2003 HEPATITIS C SCREENING 08/04/2006 DTAP/TDAP/TD VACCINES (1 - Tdap) 2007 HEPATITIS B VACCINE (1 of 3 - 19+ 3-dose series) 2007 COVID-19 VACCINE ( - 2023-2 5 season) 2024 INFLUENZA VACCINE (#1) 2024 9, 09/02/2017 DEPRESSION SCREENING 11/02/2024 ZOSTER VACCINE (1 of 2) 2038 Respiratory Syncytial Virus (RSV) Vaccine Pt: or over 60 yrs (1 - 1-dose 75+ series) 2063 HIB VACCINE Aged Out No longer eligi ble based on patient's age to complete this topic HPV VACCINE Aged Out No longer eligi ble based on patient's age to complete this topic MENINGOCOCCAL (Group B) VACCINE SHARED DECISION-MAKING Aged Out No longer eligible based on patient's age to complete this topic MENINGOCOCCAL GROUPS A/C/Y/W VACCINE Aged Out No longer eligible b ased on patient's age to complete this topic PNEUMOCOCCAL VACCINE Aged Out No long er eligible based on patient's age to complete this topic
--- NOTE | 2025-01-25 23:35 | PC.NURSE ---
No answer when called for a room.
--- OUTSIDE RECORDS SUMMARY | 2025-01-26 00:16 | XMS_ITS | Clinical Summary ---
Author Organization [facility] Address [address] [place] [address] Care Team Providers Care Metal Stud Framer Name Role Phone Unavailable Primary Care Provider Unavailabl e Source Comments [facility],non-owned Affiliates and Associated Physician Practices is amultiple site organization consisting of ambulatory clinics and hospital sitesin [place], [place], [place] and [place]. This disclosure is being madepursuant to the Care Everywhere program and may not contain all information available regarding this patient. Last updated 18.[facility] [place] Allergies No known active allergies Immunizations Name [...]
== END 2025-01-25 23:47 | disposition left against medical advice (07) ==
DX: R50.9 Fever, unspecified (principal)
CPT/HCPCS: 99199

== ENCOUNTER 2025-08-22 09:53 | Outpatient (CLI) | payer OTHER, SELFPAY ==
[2025-08-22 11:12] LABS: Hematocrit 44.7 % (37.0-47.0); Hemoglobin 14.5 g/dL (12.0-15.0); Immature Granulocyte Percent A 0.3 % (0-0.5); Lymphocytes Absolute Auto 0.58 K/mm3 (0.9-3.2); Mean Corpuscular HGB Conc 32.4 g/dl (32-36); Mean Corpuscular Hemoglobin 29.1 pg (26-34); Mean Corpuscular Volume 89.6 fl (80-100); Nucleated Red Blood Cells Absolute Auto 0.000 K/mm3 (0.0-0.012); Nucleated Red Blood Cells Perc 0.0 % (0.0-0.2); Platelet Count Result 190 k/mm3 (150-375); Red Blood Count 4.99 M/mm3 (4.2-5.4); White Blood Count 5.8 K/mm3 (4.5-10.0)
[2025-08-22 11:31] LABS: Alanine Aminotransferase 16 U/L (6-35); Albumin Level 4.5 g/dL (3.5-5.1); Alkaline Phosphatase 55 U/L (38-126); Anion Gap 7 mmol/L (4-12); Aspartate Amino Transferase 31 U/L (14-36); Bilirubin,Total 0.6 mg/dL (0.2-1.3); Blood Urea Nitrogen 7 mg/dL (7-17); Calcium 9.2 mg/dL (8.4-10.2); Carbon Dioxide 28 mmol/L (22-30); Chloride 101 mmol/L (98-107); Cholesterol 148 mg/dL (0-200); Estimated Glomerular Filt Rate > 60; Glucose 99 mg/dL (65-110); HDL Direct 58 mg/dL; Potassium 3.9 mmol/L (3.4-5.0); Sodium 136 mmol/L (137-145); Total Protein 7.5 g/dL (6.3-8.2); Triglycerides 76 mg/dL (<150)
[2025-08-22 11:51] LABS: Free T4 Free Thyroxine 1.16 ng/dL (0.78-2.19)
[2025-08-22 12:07] LABS: Thyroid Stimulating Hormone 1.300 uIU/mL (0.465-4.680)
== END 2025-08-22 09:54 | disposition home or self-care (01) ==
LOC: ANHLAB 09:54
PROVIDERS: PCP Student in an Organized Health Care Education/Training Program; Visit Provider Student in an Organized Health Care Education/Training Program
DX: F41.9 Anxiety disorder, unspecified (principal); R53.83 Other fatigue; Z00.00 Encounter for general adult medical examination without abnormal findings; Z13.220 Encounter for screening for lipoid disorders
CPT/HCPCS: 36415; 80053; 80061; 84439; 84443; 85025